=== PATIENT | female | born 1985 | race Caucasian/White ===

== ENCOUNTER 2020-08-24 08:42 | Outpatient (REF) | payer OTHER, SELFPAY ==
[2020-08-24 11:08] LABS: Ferritin 74 ng/mL (10-122)
== END 2020-08-24 08:43 | disposition home or self-care (01) ==
LOC: HO.LAB 08:42
PROVIDERS: PCP Internal Medicine; Visit Provider Psychiatry & Neurology Neurology
DX: G25.81 Restless legs syndrome (principal)
CPT/HCPCS: 36415; 82728

== ENCOUNTER 2022-12-19 14:05 | Outpatient (AMB) | payer BC, SELFPAY ==
[2022-12-19 14:07] VITALS: BP 140/90; PULSE 96; O2SAT 98; BMI 39.2
--- NOTE | 2022-12-19 14:07 | MHC.OFFVIS ---
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 Pt states I've had them since I was a kid, they run in the family. They have been getting worse in the past 2 years. Pt also states she saw another provider and I didn't feel like he is treating them. Acid Correction Hand Required: No Allergies iodine Allergy (Unknown, Verified 12/19/22 14:15) Unknown HPI HPI Comments History of Present Illness Details Right-handed 37-yr-old female presents for new pt evaluation of headache disorder, specifically migraine. Pt was previously seeing another neurologist and is hoping to transfer care to optimize her migraine tx. Pt reports worsening headaches over the last 2 years. Headache questionnaire: Age/time of onset? 10 Preceding causes? none Headache characteristics? Can have either right or left or both- sinus pressure that moves into the temples Pain intensity? Headaches 5/10, Migraine 10/10 Prodrome symptoms? None Aura? None Associated symptoms? photophobia, phonophobia, osmophobia, nausea, rarely vomitting, some allodynia, dizziness, lightheaded, some trailing diplopia, brain fog, tiredness Focal weakness, Parethesias, Autonomic s/s? none Postdrome? sometimes has residual s/s Triggers? Weather changes- storms, certain foods- red wine, cured meats, sulfates, certain cheeses Positional, valsalva, exertional, sexual activity triggers? none Menstrual triggers? Before and during her period- she has bad migraines Time of day? often wakes up in the headache- more so over the last year Duration? 1-4 days Frequency? Has milder migraine- every other day, Has severe migraine- 1 attack w/ 1-4 days per month How does headache impact your life? 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 Current acute medication use/interventions: Rizatriptan 10mg prn w/ Tylenol 1000mg/Ibuprofen 400mg- not always effective Previous acute medication use: Sumatriptan- ineffective Current preventative medication use: Topiramate 100mg qhs- not helping. On Venlafaxine ER 150mg- for mood. Previous preventative medication use: None Non-pharmacological interventions: Rest, ice pack No h/o head imaging. Her last eye exam- end september- normal. Required a stronger contact/glasses prescription. Other history of headache disorder? None History of musculoskeletal disorders or injury? Has a h/o back surgery- disc dissection at age 27/28, has h/o scoliosis- used a back brace as a child. Denies neck pain. History of concussion/head injury? None History of mood disorder? Depression- controlled on Venlafaxine. History of sleep disorder? Snoring, frequent arousals, difficulty sleeping, fatigue. Uses a sleep aide. Has RLS- legs feel jittery, tingling, restlessness- occurs at night. Pramipexole 0.5mg and Gabapentin 300-600mg (for her back pain) an hr before bed. Using a generic sleep aide and tizanidine as needed. Has h/o anemia. 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 History of respiratory disease? None History of CV disease? None History of coagulopathy? None History of endocrine or metabolic disease? None. Has had a 25 kb weight gain over the last 2-3 yrs. History of seizure? None Other? Denies constipation. Has an occasional leg cramps Family planning? No plans Family history of migraine or other headache disorder? Strong family h/o migraine and FRACISCO PFSH Surgical History (Updated 12/19/22 @ 14:20 by Val Reich CMA) History of back surgery History of carpal tunnel release Family History (Updated 12/19/22 @ 14:21 by Val Reich CMA) Father Hypertension Migraines Maternal Grandmother Migraines Brother Migraines Review of Systems Const Details: See scanned ROS form Physical Exam Vital Signs: Last Vital Signs Pulse 96 12/19/22 14:07 BP 140/90 H 12/19/22 14:07 Pulse Ox 98 12/19/22 14:07 Oxygen Delivery Method Room Air 12/19/22 14:07 BMI result Body Mass Index 39.2 Const Orientation/consciousness: patient oriented x3 HEENT Other: Mild diffuse palpable scalp/facial tenderness. Mallampati stage IV Head: Yes normocephalic Resp Effort & Inspection: normal respiratory effort and able to speak in complete sentences Neuro Other: Photophobic General: patient oriented x3 Cranial nerves: Yes CN's II-XII intact bilaterally Cognition (Neuro): normal cognition Gait exam (Neuro): Normal gait present Motor exam (neuro): 5/5 motor strength present throughout Deep tendon reflexes (DTR's): Right triceps reflex intensity grade: 2+, Left triceps reflex intensity grade: 2+, Rt Biceps (C5, C6): 2+, Left biceps reflex intensity grade: 2+, Right brachioradialis reflex intensity grade: 2+, Left brachioradialis reflex intensity grade: 2+, Right patellar reflex intensity grade: 2+ and Left patellar reflex intensity grade: 2+ Coordination: [id number] test normal, tandem gait normal and Romberg test negative Pupils: Normal pupillary reactivity/response: bilateral Psych Appearance: grossly normal Mental Status: mental status grossly normal Speech and movement: Normal speech and movement present Affect: normal affect Attitude: cooperative Thought process: Normal thought process present Assessment & Plan Assessment & Plan (1) Migraine without aura: Code(s): G43.009 - Migraine without aura, not intractable, without status migrainosus (2) Worsening headaches: Code(s): R51.9 - Headache, unspecified (3) Snoring: Code(s): R06.83 - Snoring (4) Sleep disorder: Code(s): G47.9 - Sleep disorder, unspecified (5) Excessive daytime sleepiness: Code(s): G47.19 - Other hypersomnia (6) Vision changes: Code(s): H53.9 - Unspecified visual disturbance (7) Weight gain: Code(s): R63.5 - Abnormal weight gain Plan Pt advised to undergo HST to assess for sleep apnea. Pt is advised to undergo brain MRI to assess for intracranial HTN as pt is having increased migraines/headaches in setting of weight gain/obesity. For overall headache management: Discussed importance of good self-care, including but not limited to maintaining a healthy diet, adequate fluid intake, adequate sleep, and engaging in regular physical activity. For headache triggers: Track headaches, especially after any treatment regimen changes. Mig[employer] is one of many headache tracking apps. For sleep: Pt may benefit from reading Say Jenna to Insomnia by Dr Casimiro Sanches or other [facility] resources. Continue Pramipexole 0.5mg qhs- for RLS. Last Ferritin 74 NL. Magnesium may help RLS s/s/- if no improvement consider rechecking ferritin/iron studies. For acute headache treatment: Discussed importance of taking acute medications at the first sign of headache, however stressed importance of avoiding acute medication overuse (especially with combined headache medications). Trial Sumatriptan 100mg tab, 1/2 - 1 tab (50-100mg) at onset of headache, may repeat in 2 hours. Max of 2 tabs (200mg) per 24 hours. May adjunct with OTC Tylenol 650mg q 4 hours, Ibuprofen 600mg q 6 hours, or Naproxen 440mg q 12 hrs prn. Hold Rizatripatn- not always effective. Reviewed potential adverse effects of triptans, including but not limited to nausea, fatigue, chest tightness/tingling (usually passes within a few minutes), medication overuse headaches. Previous acute migraine medication trials: Rizatripatn- not always effective. Acute migraine medication contraindications: None at this time Futire considerations- Sumatriptan inj, DHE, gepants For headache prevention medication: Discussed that preventative medications should be taken routinely as prescribed for best effect, it may take several weeks for full effect to take effect. Start Riboflavin 400mg qam Start Magnesium 400mg qhs Continue Venlafaxine for mood. Increase Topiramate from 100mg qhs to 50mg qam and 100mg qhs x's 1-2 weeks then 100mg bid. Reviewed potential adverse effects of Topiramate, including but not limited to fatigue, cognitive changes, paresthesias (tingling), vision changes, kidney stones. Previous migraine prevention medication trials: None Migraine prevention medication contraindications: None at this time Future considerations- BBs Pt to follow-up in 3 months or sooner prn. Orders: Orders MR head/brain wo/w con Today H53.9 - Unspecified visual disturbance, R51.9 - Headache, unspecified, R63.5 - Abnormal weight gain MR venography head wo/w con Today H53.9 - Unspecified visual disturbance, R51.9 - Headache, unspecified, R63.5 - Abnormal weight gain RT home sleep study Today G47.19 - Other hypersomnia, G47.9 - Sleep disorder, unspecified, H53.9 - Unspecified visual disturbance, R06.83 - Snoring, R51.9 - Headache, unspecified, R63.5 - Abnormal weight gain Medications: New magnesium oxide may hold for loose stools 400 mg PO BEDTIME 30 days 30 tabs 6RF riboflavin (vitamin B2) 400 mg PO DAILY 30 days 30 tabs 6RF sumatriptan succinate (0.5 - 1 x 100 mg) 50 - 100 mg orally at onset of headache, may repeat in 2 hrs PRN; max 2 tabs per day or 4 tabs/week (may take with Ibuprofen) 30 days 12 tabs 6RF migraine headache topiramate 1/2 tab qam and 1 tab qhs x's 2 weeks then 1 tab bid orally .; 30 days 60 tabs 3RF Coding Level of Care Code New Pt Level 4 (55784) Diagnoses Migraine without aura G43.009 Worsening headaches R51.9 Snoring R06.83 Sleep disorder G47.9 Excessive daytime sleepiness G47.19 Vision changes H53.9 Weight gain R63.5
== END 2022-12-19 15:21 | disposition home or self-care (01) ==
PROVIDERS: PCP Internal Medicine; Visit Provider Nurse Practitioner Family
DX: G43.009 Migraine without aura, not intractable, without status migrainosus (principal); R06.83 Snoring; G47.9 Sleep disorder, unspecified; G47.19 Other hypersomnia; H53.9 Unspecified visual disturbance; R63.5 Abnormal weight gain
CPT/HCPCS: 99204

== ENCOUNTER → 2022-12-19 14:05 | Outpatient (BNVA) | payer BC, SELFPAY | PROVIDERS: PCP Internal Medicine; Visit Provider Nurse Practitioner Family ==

== ENCOUNTER → 2023-12-16 14:56 | Outpatient (REF) | payer OTHER, SELFPAY | LOC: HO.SL 14:56 | PROVIDERS: PCP Nurse Practitioner Family; Visit Provider Nurse Practitioner Family | DX: R06.83 Snoring (principal); G47.9 Sleep disorder, unspecified; G47.19 Other hypersomnia; R51.9 Headache, unspecified; H53.9 Unspecified visual disturbance; R63.5 Abnormal weight gain | CPT/HCPCS: 95806 ==

== ENCOUNTER → 2023-12-16 15:06 | Outpatient (BNV) | payer OTHER, SELFPAY | PROVIDERS: PCP Nurse Practitioner Family; Visit Provider Internal Medicine | DX: R06.83 Snoring (principal); R40.0 Somnolence | CPT/HCPCS: 95806 ==

== ENCOUNTER 2024-06-01 08:22 | Outpatient (AMB) | payer OTHER, SELFPAY ==
[2024-06-01 08:40] VITALS: BP 130/90; PULSE 86; O2SAT 100; BMI 39.9
--- NOTE | 2024-06-01 08:40 | A.OFFVIS_ITS ---
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 Accompanied by: Self / Same As Patient Allergies iodine Allergy (Unknown, Verified 06/01/24 08:42) Unknown Medication List - Last Reconciled 06/01/24 by MARY Doyle aluminum chloride 20% (Drysol Dab-O-Matic) mL topical BEDTIME PRN diphenhydramine HCl 50 mg PO BEDTIME gabapentin 300 mg PO TID magnesium oxide 400 mg PO BEDTIME 30 days multivitamin 1 tab PO DAILY norethindrone (contraceptive) 0.35 mg PO DAILY pramipexole 0.5 mg PO BEDTIME riboflavin (vitamin B2) 400 mg PO DAILY 30 days rizatriptan mg PO sumatriptan succinate 50 - 100 mg orally at onset of headache, may repeat in 2 hrs PRN; max 2 tabs per day or 4 tabs/week (may take with Ibuprofen) 30 days tizanidine 4 mg PO TID topiramate 100 mg PO DAILY topiramate 1/2 tab qam and 1 tab qhs x's 2 weeks then 1 tab bid orally .; 30 days venlafaxine ER 150 mg PO DAILY HPI Comments Details: 38-yr-old female presents for follow-up of migraine. Patient last seen in November 2022. Pt reports in the last 1-2 months, she has had right upper molar #3 dental work- initially a root canal and is scheduled for a f/u revision next week. During this work-up, she was told the X-rays revealed right maxillary sinus inflammation. Her oral surgeon plans to refer her for an ENT consult. Pt did not have the brain MRI d/t she forgot about the appointment d/t family stress- her entered rehab for alcohol recovery. HST was normal, and showed very mild snoring. She has been noticing a new headache, which feels more like a sinus headache, on top of her typical migraine attacks. She is having 2-5 headache days per week. She describes the sinus headaches as a holocranial head pressure/swelling when bending over a/w photophobia/phonophobia and feeling dizzy when she gets back up. Nothing seems to help nice sinus headache. Sumatriptan helps some but not fully w/ her typical migraine with a vice-detective homicide squad squeezing pain. She tried Magnesium, but caused GI cramps and diarrhea. She has not noticed any worsening in her vision in the last year and a half. Headache questionnaire: Age/time of onset: 12 Preceding causes: Denies any Prodrome symptoms: None Aura: None Headache characteristics: Moderate to severe (5-10/10), right or left or bilateral sinus pressure that moves into temples as a squeezing, vice detective homicide squad type pain. Associated symptoms: photophobia, phonophobia, osmophobia, nausea, rarely vomiting, some allodynia, dizziness, lightheaded, some trailing diplopia, brain fog, tiredness Postdrome: sometimes has residual s/s Triggers: Weather changes- storms, certain foods- red wine, cured meats, sulfates, certain cheeses Menstrual triggers: Before and during her period- she has bad migraines PFSH Surgical History History of carpal tunnel release History of back surgery Family History Father Hypertension Migraines Maternal Grandmother Migraines Brother Migraines Physical Exam Vital Signs: Last Vital Signs Pulse 86 06/01/24 08:40 BP 130/90 H 06/01/24 08:40 Pulse Ox 100 06/01/24 08:40 Oxygen Delivery Method Room Air 06/01/24 08:40 BMI result Body Mass Index 39.9 Const Orientation/consciousness: patient oriented x3 HEENT Head: Yes normocephalic Resp Effort & Inspection: normal respiratory effort and able to speak in complete sentences Neuro Other: Photophobic General: patient oriented x3 Cranial nerves: Yes CN's II-XII intact bilaterally Cognition (Neuro): normal cognition Gait exam (Neuro): Normal gait present Motor exam (neuro): 5/5 motor strength present throughout Pupils: Normal pupillary reactivity/response: bilateral Psych Appearance: grossly normal Mental Status: mental status grossly normal Speech and movement: Normal speech and movement present Affect: normal affect Attitude: cooperative Thought process: Normal thought process present Assessment & Plan Assessment & Plan (1) Worsening headaches: Code(s): R51.9 - Headache, unspecified Category: Medical (2) Migraine without aura: Code(s): G43.009 - Migraine without aura, not intractable, without status migrainosus Category: Medical (3) Snoring: Code(s): R06.83 - Snoring Category: Medical (4) Weight gain: Code(s): R63.5 - Abnormal weight gain Category: Medical (5) New onset headache: Code(s): R51.9 - Headache, unspecified Category: Medical (6) Pain of maxillary sinus: Code(s): J34.89 - Other specified disorders of nose and nasal sinuses Category: Medical Plan Reviewed HST- no evidence for sleep apnea. Pt is again advised to undergo brain MRI to assess for intracranial HTN as pt is having increased migraines/headaches and now new headache in setting of weight gain/obesity. Alprazalom 0.25-0.5mgmg prior to MRI for claustrophobia/anxiety. Pt is advised to undergo CT face/sinus w/o to assess extent of maxillary sinus inflammation in setting of new headache. For overall headache management: Discussed importance of good self-care, including but not limited to maintaining a healthy diet, adequate fluid intake, adequate sleep, and engaging in regular physical activity. For headache triggers: Track headaches, especially after any treatment regimen changes. [employer] is one of many headache tracking apps. For sleep: Continue Pramipexole 0.5mg qhs- for RLS. Last Ferritin 74 NL. For acute headache treatment: Discussed importance of taking acute medications at the first sign of headache, however stressed importance of avoiding acute medication overuse (especially with combined headache medications). Hold Sumatriptan 100mg tab- not fully effective. Hold Rizatripatn- not always effective. Trial Diclofenac 50mg q 12 hrs prn migraine. Trial Sumatriptan 6mg sc inj prn at onset of severe migraine a/w nausea, MR x's 1 (max 12mg/day). Trial Ubrogepant (Ubrelvy) 100mg tab, 1/2 - 1 tab (50-100mg) at onset of headache, may repeat in 2 hours. Max of 2 tabs (200mg) per 24 hours. May adjunct with OTC Tylenol 650mg q 4 hours or Diclofenac 50mg q 12 hrs prn. Potential adverse effects, include but are not limited to fatigue, nausea, dry mouth, con stipation Previous acute migraine medication trials: Rizatriptan- not always effective. Sumatriptan 100mg tab- not fully effective. Acute migraine medication contraindications: None at this time Future considerations- DHE, gepants For headache prevention medication: Discussed that preventative medications should be taken routinely as prescribed for best effect, it may take several weeks for full effect to take effect. Continue Riboflavin 400mg qam Discontinue Magnesium 400mg qhs- caused GI upset. Continue Venlafaxine ER 225mg for mood. Continue Topiramate 100mg bid. Start Propranolol ER 60mg qhs. Do not take at same time as Tizanidine which she uses sparingly. Potential side effects include but are not limited to fatigue, lightheadedness, low blood pressure, low heart rate, asthma/respiratory disease exacerbation, weight gain, hair loss, sexual dysfunction. Previous migraine prevention medication trials: Magnesium 400mg qhs- caused GI upset. Migraine prevention medication contraindications: None at this time Future considerations- CGRP MaB Will follow-up upon review of above and patient to follow-up in clinic in 6 months or sooner prn. Orders: Orders CT sinus wo IV con Today J34.89 - Other specified disorders of nose and nasal sinuses, R51.9 - Headache, unspecified MR head/brain wo/w con Today R51.9 - Headache, unspecified Medications: New ubrogepant (Ubrelvy) take at onset of migraine, may repeat in 2hrs (may take w/ Ibuprofen) 50 - 100 mg (0.5 - 1 x 100 mg) PO ONCE PRN 16 tabs 3RF migraine headache 30 days alprazolam 0.25 mg orally 1 tab 30 minutes prior to MRI, may repeat x's 1; 2 tabs 0RF 1 day propranolol ER 60 mg PO BEDTIME 30 caps 3RF 30 days diclofenac potassium 50 mg PO Q12H PRN 60 tabs 1RF headache 30 days sumatriptan succinate may repeat x's 1 in 1 hr. 6 mg (0.5 mL) subcut ONCE 4 mL 3RF severe migraine attack w/ nausea 30 days G43.009 - Migraine without aura, not intractable, without status migrainosus Coding Level of Care Code Est Pt Level 4 (89220) Diagnoses Worsening headaches R51.9 Migraine without aura G43.009 Snoring R06.83 Weight gain R63.5 New onset headache R51.9 Pain of maxillary sinus J34.89
== END 2024-06-01 09:30 | disposition home or self-care (01) ==
PROVIDERS: PCP Internal Medicine; Visit Provider Nurse Practitioner Family
DX: R51.9 Headache, unspecified (principal); G43.009 Migraine without aura, not intractable, without status migrainosus; R06.83 Snoring; R63.5 Abnormal weight gain; J34.89 Other specified disorders of nose and nasal sinuses
CPT/HCPCS: 99214

== ENCOUNTER → 2024-06-01 08:22 | Outpatient (BNVA) | payer OTHER, SELFPAY | PROVIDERS: PCP Internal Medicine; Visit Provider Nurse Practitioner Family ==

== ENCOUNTER 2024-06-21 16:09 | Outpatient (REF) | payer BC, SELFPAY ==
--- NOTE | ~2024-06-21 | MR_ITS ---
EXAMINATION: MR BRAIN WITHOUT THEN WITH IV CONTRAST HISTORY: R51.9 - Headache, unspecified TECHNIQUE: Sagittal T1, and axial T1, FLAIR, T2, gradient echo, and diffusion weighted MR images of the brain were obtained. Subsequently, axial, and coronal T1-weighted images were obtained after the administration of intravenous gadolinium. 10 mL Gadavist was administered. COMPARISON: None FINDINGS: The brain parenchyma is unremarkable, demonstrating normal castro/white differentiation. No foci of abnormal signal intensity are identified. The ventricular system is normal in size and configuration. There is no mass effect or midline shift. No intra or extra-axial fluid collections are identified. There are no foci of restricted diffusion. There is no abnormal contrast enhancement. Normal vascular flow voids are noted in the basilar and carotid arteries. The visualized paranasal sinuses are clear. MR/MR head/brain wo/w con IMPRESSION: Unremarkable MRI of the brain without and with contrast. Electronically signed by: Jules Kumar MD 06/22/2024 07:08 AM [facility]
[2024-06-21] MEDS: gadobutroL 10 ML VIAL IVPUSH (16:58)
--- OUTSIDE RECORDS SUMMARY | 2024-06-21 19:49 | XMS_ITS | Clinical Summary ---
Author Organization [facility] it Address [address] [place] [address] Care Team Providers Care Biomedical Photographer Name Role Phone Arianna Fitzgerald MD Primary Care Provider Unav ailable Surgical History Surgery Date Site/Laterality Comments WRIST SURGERY 2005 PROCEDURE: HISTORICAL WRIST SURGERY; COMMENT: arm surgery age 20, needing 3 surgery repair WISDOM TOOTH EXTRACTION PROCEDURE: HISTORICAL WISDOM TEETH EXTRACTION OTHER SURGICAL HISTORY 04/10/2015 PROCEDURE: DISKECTOMY LUMBAR SINGLE SP; COMMENT: L4-L5 right sided microdiscectomy. UPPER GASTROINTESTINAL ENDOSCOPY 07/29/2016 PROCEDURE: LA UPPER GI ENDOSCOPY PERFORMED; COMMENT: Normal with normal bx. COLONOSCOPY 07/29/2016 PROCEDURE: HISTORICAL COLONOSCOPY; COMMENT: Visually normal; path: focal active proctosigmoiditis. OTHER SURGICAL HISTORY 03/11/2019, 07/05/2020 Right PROCEDURE: LA NEUROPLASTY &/TRANSPOSITION ULNAR NERVE ELBOW; COMMENT: Dr Devora Dent revised CARPAL TUNNEL RELEASE 07/05/2020 Right PROCEDURE: HISTORICAL CARPAL TUNNEL REL Medical History Medical History Date Comments Migraine, unspecified, witho ut mention of intractable migraine without mention of status migrainosus DX:Migraine, unspecified , without mention of intractable migraine without mention of status migrainosus MRSA (methicillin resistant Staphylococcus aureus) infection 09/30/2016 DX:MRSA (methicillin resistant Staphylococcus aureus) infection; COMMENT: July, S/P cubital tunnel release 07/19/2020 DX:S/ P cubital tunnel release; COMMENT: Recurrent, most recent surgery Dr Dent 07/05/2020 along with right carpal tunnel release Family History Medical History Relation Name Comments Hypertension Father Jules 10/2018 s/p bila t TKR's Prostate cancer Maternal Grandfather of [place] age 80 Brain Aneurysm Maternal Grandmother age 75 Other: healthy 10/2018 Mother Elysia Ulcerative colitis Mother's side Aunt and 2 cousins Arthritis Paternal Grandmother migrain es Breast cancer Neg Hx Colon cancer Neg Hx Ovarian cancer Neg Hx Uterine cancer Neg Hx Relation Name Status Comments Brother 1 Alive 1981 WOODY Brother 2 Alive 1985 SOPHIA Father Jules Alive 1960, htn, Maternal Grandfather Maternal Grandmother Mother Elysia Alive 1958, Mother's side Paternal Grandfather Alive Paternal Grandmother Alive Sister Alive 1979 STARK Social History Tobacco Use Types Packs/Day Years Used Date Smoking Tobacco: Never Smokeless Tobacco: Never Alcohol Use Standard Drinks/Week Comments Yes 0 (1 standard drink = 0.6 oz pur e alcohol) Sex and Gender Information Value Date Recorded Sex Assigned at Not on file Gender Identity Not on file Sexual Orientation Not on file Obstetrics History Last Filed Vital Signs Vital Sign Reading Time Taken Comments Blood Pressure 112/78 11/05/2021 2:36 PM EDT Pulse - - Temperature - - Respiratory Rate - - Oxygen Saturation - - Inhaled Oxygen Concentration - - Weight 96.6 kg (213 lb) 09/23/2022 9:59 AM EDT Height 160 cm (5' 3 ) 09/23/2022 9:59 AM EDT Body Mass Index 37.73 09/23/2022 9:59 AM EDT Plan of Treatment Health Maintenance Due Date Last Done Comments Cervical Cancer Screening: Pap Smear 11/02/2021 11/02/2018 Depression Screening 04/28/2022 HIV Screening 04/28/2022 Hepatitis C Screening 04/28/2022 Social Influencers of Health Screening 04/28/2022 COVID-19 Vaccine ( season) 2024 Influenza Vaccine (#1) 2024 06/17/2012 DTaP,Tdap,and Td Vaccines (8 - Td or Tdap) 02/25/2029 02/25/2019, 09/16/2007, 01/24/1993, Additional history exists HIB Vaccines Completed 02/13/1989 IPV Vaccines Completed 01/24/1993, 01/25, 01/24/1989, Additional history exists Hepatitis B Vaccines Completed 11/12/1999, 07/02/1999, 05/28/1999 MMR Vaccines Completed 04/25/2000, 10/07/1988 HPV Vaccines Aged Out No longer eligi ble based on patient's age to complete this topic Hepatitis A Vaccines Aged Out No long er eligible based on patient's age to complete this topic Meningococcal ACWY Vaccine Aged Out N o longer eligible based on patient's age to complete this topic Pneumococcal Vaccine: Pediatrics (0 to 5 Years) and At-Risk Patients (6 to 64 Years) Aged Out No longer eligible based on patient's age to complete this topic RSV Immunization Patients Under 20 months Aged Out No longer eligible based on patient's age to complete this topic Varicella Vaccines Aged Out No longer eligible based on patient's age to complete this topic Procedures Procedure Name Priority Date/Time Associated Diagnosis Comments PAP SMEAR Routine 11/02/2018 from Last 3 Months or Most Recently Relevant to Health Maintenance Results * Pap smear (11/02/2018) 11/02/2018 Narrative HISTORICAL TESTING LAB RESULTING AGENCY - 11/05/2018 5:16 PM EDT [id number] THINPREP PAP, IMAGED: NEGATIVE FOR SQUAMOUS INTRAEPITHELIAL LESION AND MALIGNANCY . MEHNAZ PANDEY(ASCP) (CASE ELECTRONICALLY SIGNED 11 05 2018) RESULT OF APTIMA HIGH RISK HPV ASSAY: HIGH RISK HPV: ??NEGATIVE (SEROTYPES 16,18,31,33,35,39,45,51,52,56,58,59,66,68) COMPLETED ON 2018-11-05 ADEQUACY: SATISFACTORY ENDOCERVICAL/TRANSFORMATION ZONE COMPONENT ABSENT. SOURCE: THINPREP PAP HPV ANY DX: ??REFLEX 16 AND 18, CERVICAL, IMAGED CLINICAL INFORMATION: HPV ANY DIAGNOSIS. 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 Health Care Decision (hx) 08/07/2016 AD SAUL DIRECTIVE Health Care Decision (hx) 08/07/2016 AD SAUL DIRECTIVE Health Care Decision (hx) 08/07/2016 AD SAUL DIRECTIVE Health Care Decision (hx) 08/07/2016 AD SAUL DIRECTIVE Health Care Decision (hx) 08/07/2016 AD SAUL DIRECTIVE Health Care Decision (hx) 04/10/2015 AD SAUL DIRECTIVE Health Care Decision (hx) 04/10/2015 AD SAUL DIRECTIVE Health Care Decision (hx) 04/10/2015 AD SAUL DIRECTIVE Health Care Decision (hx) 04/10/2015 AD SAUL DIRECTIVE Health Care Decision (hx) 04/10/2015 AD SAUL DIRECTIVE Care Teams Biomedical Photographer Relationship Specialty Start Date End Date Arianna Fitzgerald MD PCP - General Internal Medicine 04/23/11
--- OUTSIDE RECORDS SUMMARY | 2024-06-21 19:49 | XMS_ITS | Clinical Summary ---
Author Organization [facility] Address [address] [place] [address] Care Team Providers Care Engineer Byproduct Name Role Phone Unavailable Primary Care Provider Unavailabl e Social History Tobacco Use Types Packs/Day Years Used Date Smoking Tobacco: Never Assessed Comments Unknown Sex and Gender Information Value Date Recorded Sex Assigned at Not on file Legal Sex Female 12:12 PM EDT Gender Identity Not on file Sexual Orientation Not on file Plan of Treatment Health Maintenance Due Date Last Done Comments Depression: Screening Annual ly using PHQ-2/9 in Adults 18 yrs or above (or HM Modifier)([facility]) 2005 Hepatitis C Virus Infection in Adolescents and Adults: Screening (or Modifier) ([facility]) 2005 SDOH Screening Reminder: Carmelina ually for all adults ([facility]) 2005 Tobacco Smoking Cessation: i n Adults excluding Women: Behavioral and Pharmacotherapy Interventions ([facility]) 2005 DTaP/Tdap/Td Vaccines ([facility]) (1 - Tdap) 2006 Lipid Screening: Once for Wo men aged 20 to 45 yrs ([facility]) 2007 Cervical Cancer Screenin 1-65 yrs of age (or Modifier) 2008 Cervical Cancer Screening: P ap every 3 yrs pts age 21-65 2008 Cervical Cancer: Pap Screeni ng with Modifier timing ([facility]) 2008 Cervical Cancer: hrHPV alone or with cotesting Pap for Pts 30-65yrs screening every 5yrs ([facility]) 2008 Flu Vaccination: Yearly for ages 18mos through 64 years (or Modifier)([facility]) 12/25/2023 COVID-19 Vaccine Screening: Initial Series and Booster Status ([facility]) (2023- season) 2024 Zoster/Shingles Vaccine Seri es Screening: Adults aged 18+ yrs (or HM Modifiers)([facility]) (1 of 2) 2037 Pneumococcal Vaccination Scr eening: Pts 0-19 & 19-64 yrs of age ([facility]) Aged Out No longer eligible based on patient's age to complete this topic Medical Devices Not on file Insurance [facility]
== END 2024-06-21 16:10 | disposition home or self-care (01) ==
LOC: HO.MRI 16:09
PROVIDERS: PCP Nurse Practitioner Family; Visit Provider Nurse Practitioner Family
DX: R51.9 Headache, unspecified (principal)
CPT/HCPCS: 70553; A9585

== ENCOUNTER → 2024-06-21 16:22 | Outpatient (BNV) | payer BC, SELFPAY | PROVIDERS: PCP Nurse Practitioner Family; Visit Provider Radiology Diagnostic Radiology | DX: R51.9 Headache, unspecified (principal) | CPT/HCPCS: 70553 ==